=== PATIENT | female | born 1960 ===

== ENCOUNTER 2018-09-30 09:08 | Day surgery (SDC) | payer OTHER ==
[~2018-09-30] VITALS: Ht 157.5 cm; Wt 73.9 kg
[2018-09-30 09:57] VITALS: BP 104/67
[2018-09-30] MEDS ORDERED: HYDROCODON-ACE1 EA13 ORAL (10:07)
[2018-09-30] MEDS ORDERED: BUSPIRONE HCL10 M1 ORAL (10:07)
[2018-09-30] MEDS ORDERED: [UNRECOGNIZED DRUG - OTHER] PO (10:07)
[2018-09-30] MEDS ORDERED: DOK100 M2 PO (10:07)
--- NOTE | 2018-09-30 10:24 | Short Stay Surgery H&P ---
History of Present Illness History of Present Illness Chief Complaint Abdominal pain/GERDs, HPI Erika Ferrer is a 58 year old female who was admitted on for GERD and abdominal pains Patient History PAST MEDICAL HISTORY: (1) Acute arthritis (2) Status post carpal tunnel release Medication History Scheduled Buspirone Hcl* (Buspirone Hcl*), 10 MG ORAL ONCE, (Reported) Docusate Sodium (Dok), 100 MG PO DAILY, (Reported) Hydrocodone Bit/Acetaminophen 10-325* (Hydrocodon-Acetaminophn 10-325*), 1 TAB ORAL Q4H, (Reported) Methylphenidate Hcl (Methylphenidate Hcl), 10 MG PO DAILY, (Reported) Review of Systems Cardiovascular: Reports: no symptoms Respiratory: Reports: no symptoms Skeletal: Reports: trauma Gastrointestinal: Reports: gastro esophageal reflux disease Genitourinary: Reports: no symptoms Neurologic: Reports: no symptoms Endocrine: Reports: no symptoms Hematologic: Reports: no symptoms Physical Exam Vital Signs Last Vital Signs Date Time Temp Pulse Resp B/P (MAP) Pulse Ox O2 Delivery O2 Flow Rate FiO2 09/30/18 10:08 Room Air 09/30/18 09:57 97.3 77 18 104/67 99 Skin: normal HENT: normal Heart: normal Lungs: normal Abdomen: abnormal Extremities: normal Genitourinary: normal Plan Plan of Care Upper GI endoscopy with biopsy Preop Interventions None Summary of Findings See the reports Attestation Are the patient's medical conditions optimized for surgery? Attestation Response: yes Aj Baird MD Sep 30, 2018 10:24
--- NOTE | 2018-09-30 10:25 | Pre-Procedure Note/Attestation ---
Pre-Procedure Note/Attestation Complete Prior to Procedure Planned Procedure: left Procedure Narrative: Examination of the upper GI tract via endoscope Indications for Procedure Pre-Operative Diagnosis: R/O Gastritis/Peptic ulcer Attestation I attest that I discussed the nature of the procedure; its benefits; risks and complications; and alternatives (and the risks and benefits of such alternatives ), prior to the procedure, with the patient (or the patient's legal outreach representative). I attest that, if there was a reasonable possibility of needing a blood transfusion, the patient (or the patient's legal outreach representative) was given the [facility] standardized written summary, pursuant to the [place] Blood Safety Act ([place] Health and Safety Code # 1645, as amended). I attest that I re-evaluated the patient just prior to the surgery and that there has been no change in the patient's H&P, except as documented below: Aj Baird MD Sep 30, 2018 10:25
[2018-09-30] MEDS ORDERED: Propofol 200mg/20ml IV ONE (11:00)
[2018-09-30] MEDS ORDERED: Midazolam 2mg/2ml Inj ONE (11:00)
[2018-09-30] MEDS ORDERED: Lidocaine 1% MPF 10mg/ml 5ml ONE (11:00)
[2018-09-30] MEDS ORDERED: LR 1000ml ONE (11:00)
--- NOTE | 2018-09-30 11:03 | Anethesia Preoperative Eval ---
Anesthesia Pre-op PMH/ROS General Date of Evaluation: Sep 30, 2018 Time of Evaluation: 10:45 Anesthesiologist: Colt ASA Score: ASA 1 Mallampati Score Class I : Soft palate, uvula, fauces, pillars visible Class II: Soft palate, uvula, fauces visible Class III: Soft palate, base of uvula visible Class IV: Only hard plate visible Mallampati Classification: Class I Surgeon: Oli Diagnosis: GERD Surgical Procedure: EGD Anesthesia History: none Family History: no anesthesia problems Allergies: Coded Allergies: PENICILLINS (Verified Allergy, Severe, Anaphylaxis, 09/30/18) Medications: see eMAR Patient NPO?: Yes NPO Date: Sep 29, 2018 NPO Time: 19:00 Past Medical History Cardiovascular: Denies: HTN, CAD, SC, valve dz, arrhythmia, other Pulmonary: Denies: asthma, COPD, MARY ANN, other Gastrointestinal/Genitourinary: Reports: GERD Neurologic/Psychiatric: Reports: depression/anxiety Endocrine: Reports: hypothyroidism HEENT: Denies: cataract (L), cataract (R), glaucoma, CHILKAT (L), CHIL[place]AT (R), other Hematology/Immune: Denies: anemia, DVT, bleeding disorder, other Musculoskeletal/Integumentary: Reports: OA, DJD Other: obesity PSxH Narrative: carpel tunnel release Anesthesia Pre-op Phys. Exam Physician Exam Last Vital Signs Date Time Temp Pulse Resp B/P (MAP) Pulse Ox O2 Delivery O2 Flow Rate FiO2 09/30/18 10:08 Room Air 09/30/18 09:57 97.3 77 18 104/67 99 Constitutional: NAD Neurologic: CN 2-12 intact Cardiovascular: RRR Respiratory: CTA Gastrointestinal: S/NT/ND Airway Exam Mallampati Score: Class I MO: full ROM: full Teeth: intact Dentures: no upper, no lower Anesthesia Pre-op A/P Studies Pre-op Studies: EKG Risk Assessment & Plan Assessment: A&Ox4 Plan: MAC Status Change Before Surgery: No Pre-Antibiotics Given Within 1 Hr of Incision: Radha Mota CRNA Sep 30, 2018 11:03
--- NOTE | 2018-09-30 11:05 | Immediate Post-Op Evaluation ---
Immediate Post-Op Evalulation Immediate Post-Op Evalulation Procedure: EGD Date of Evaluation: Sep 30, 2018 Time of Evaluation: 11:13 IV Fluids: 300 ml Blood Products: 0 Estimated Blood Loss: 0 Urinary Output: 0 Blood Pressure Systolic: 108 Blood Pressure Diastolic: 64 Pulse Rate: 75 Respiratory Rate: 18 O2 Sat by Pulse Oximetry: 100 Temperature (Fahrenheit): 97.5 Pain Score (1-10): 0 Nausea: No Vomiting: No Complications none Patient Status: awake, reacts, patent Hydration Status: adequate Given Within 1 Hr of Incision: No - none per surgeon Radha Gregory CRNA Sep 30, 2018 11:05
--- NOTE | 2018-09-30 11:08 | Endoscopy Procedure Note ---
Endoscopy Procedure Note General Indication for Procedure: Abdominal pains/GERDs Procedures Performed: EGD - Multiple 2-3 mm superfical ulceration in body and antral portion od the stomach and some with fresh blood clot on them, bile in the stomach and mild gasritis of the body and the antrum. biopsy obtaind from antral ulcer Specimen: yes Pt Tolerated Procedure Well: Yes Estimated Blood Loss: none Anesthesia Anesthesiologist: Ms. ted PEGUERO Anesthesia: moderate sedation Medications Medication Given: see anesthesia record Inserted Devices Implant(s) used?: No Quality Quality of Bowel Preparation: Excellent Was there any complications?: No GI Core Measures 50 yrs or older w/o bx or poly: Not Applicable 10yrs. F/U not recommended: Not Applicable If not recommended, why?: Med reason:<3 yrs.: System Reason:<3 yrs.: Aj Baird MD Sep 30, 2018 11:08
--- NOTE | 2018-09-30 11:08 | Discharge Instructions ---
Discharge Instructions Discharge Instructions Follow up with: Visit the doctor in office after 2 weeks For Congestive Heart Failure Reminder Report to your physician any weight gain of 5 pounds or more in one week. Aj Baird MD Sep 30, 2018 11:08
--- NOTE | 2018-09-30 11:28 | 48 Hour Post Anesthesia Eval ---
Post Anesthesia Evaluation Procedure: EGD Date of Evaluation: Sep 30, 2018 Time of Evaluation: 11:27 Blood Pressure Systolic: 104 0: 67 Pulse Rate: 77 Respiratory Rate: 18 Temperature (Fahrenheit): 97.3 O2 Sat by Pulse Oximetry: 99 Airway: patent Nausea: No Vomiting: No Pain Intensity: 0 Hydration Status: adequate Cardiopulmonary Status: WNL Mental Status/LOC: patient returned to baseline Post-Anesthesia Complications: none Follow-up care needed: patient intructions given Radha Gregory CRNA Sep 30, 2018 11:28
[2018-09-30 11:50] VITALS: BP 112/67
[2018-09-30 12:20] VITALS: BP 113/75
--- NOTE | 2018-09-30 17:45 | Operative Note - Dictated ---
DATE OF OPERATION: 09/30/2018 SURGEON: Aj Baird M.D. PROCEDURE: Esophagogastroduodenoscopy with biopsy and esophageal brushings. PREOPERATIVE DIAGNOSES: 1. Abdominal pain. 2. Epigastric pain. 3. Chest pain. 4. Severe heartburn. POSTOPERATIVE DIAGNOSES: 1. Multiple superficial 2 to 3 mm superficial ulcerations over the body and the antral area, some of them covered with blood clots consistent with acute gastric ulcers. 2. Evidence of bile in the stomach. 3. Mild gastritis. 4. Exudative process in the esophagus, rule out Lynne esophagus. Biopsies were taken from the gastric ulcer in the antral area and brushing was done in the esophagus to rule out Lynne esophagus. MEDICATION USED: Per Ms. Colt CRNA, fire warden. INSTRUMENT: GIF Olympus upper GI video endoscope. DESCRIPTION OF PROCEDURE: The patient after arriving endoscopy unit, was told about risks and benefits of the procedure, which she accepted and signed informed consent. She was then put in the left lateral decubitus position. After adequate IV sedation, the scope was gently passed through the cricopharyngeal area, was lodged into the upper esophagus, and gradually advanced towards gastroesophageal junction. The examination of the esophagus revealed evidence of a small exudative process adhering to the esophageal wall raising the possibility of Lynne esophagus and as such, an esophageal brushing was done. The gastroesophageal junction looked normal and there was no any evidence of hiatal hernia or Linda's. At this time, the scope was advanced into the stomach. Gastric cavity was distended with insufflation of air revealing evidence of moderate amount of bile in the stomach and the underlying mucosa basically revealed evidence of multiple small superficial ulcerations 2 to 3 mm mostly over the greater curvature of the stomach and posterior wall. Some of them are covered with fresh blood clot. There was also some ulcerations in the antrum as well and there was evidence of mild gastritis in the body and the antral area of the stomach. One biopsy from one of the ulcerations in the antrum was obtained and subsequently, the scope was passed through the pylorus. First and second portion of duodenum were found to be completely normal. At this time, the scope was pulled back into the stomach. A retroflexion maneuver was applied and the area of the gastroesophageal junction was examined, which revealed no other pathologies. Finally, the scope was pulled out and the procedure was terminated. The patient tolerated the procedure well and left the endoscopy room in a good condition. Said Lanette Baird DR: SABRINA JOB#: [id number] CC:
--- NOTE | 2018-09-30 18:00 | Pre-op HX & Phy Repo 2 SIG ---
DATE OF ADMISSION: 09/30/2018 HISTORY OF PRESENT ILLNESS: This examination is a preoperative physical history that had to be done prior to the patient undergoing anesthesia and therefore subject to the billing spent. The patient is a 58-year-old, currently actively working as technical support assistant in [employer], who basically was seen by me sometime ago and she was basically complaining of experiencing pain over the upper part of the stomach, which was associated with severe heartburn radiating towards the chest area. She reports to me now that she has been having constant pressure over the part of the epigastric area, radiating towards the chest as I mentioned with pains. These pains are recurrent in nature and occasionally last 1 hour. They were reported to be quite severe. She reports that there is no particular food that make it worse and though she does have heartburn. She had also been in the past taking [id number]-[id number] medications for this condition, such as Pepto-Bismol and etc., but it did not help her completely. It is important to mention that she has had history of taking a significant numbers of analgesics along with nonsteroidal anti-inflammatory agents such as ibuprofen and that she is also taking at this time along with Zoloft, BuSpar, and [place]. The patient, however, denies having any hematemesis, melena, hematochezia, or bleeding from GI tract. She has also been followed by her primary caregiver in [facility] and received a colonoscopic examination some years ago, which was reported to be normal. She denies having difficulty swallowing. As I mentioned, she is still taking ibuprofen of 800 mg on a daily basis. The applicant was also injured at job site, as she was functioning as a technical support assistant in [facility] and these areas of injury basically have been over the neck and dorsal lumbar area and shoulder, and she has suffered from herniated disk in the dorsal lumbar area as well. As such, she has been treated with multiple medications of NSAIDs family and received also cervical epidural steroid injection. The patient also tells me that she has been having constipation, which seems to be mostly to the side effects of [place] medicine and a strong analgesics that she had to take for controlling of her bodily pain. PAST MEDICAL HISTORY: Basically not important except arthritis and she denies any problem with lipids, diabetes, or hypertension, etc. PAST SURGICAL HISTORY: Carpal tunnel release of both hands. ALLERGIES: To penicillin . HABITS: The applicant denies drinking alcohol or smoking cigarettes. CURRENT MEDICATIONS: Zoloft, ibuprofen 800 mg, BuSpar, and [place] 5/300. REVIEW OF SYSTEMS: Basically history of present illness, however, the patient complains of experiencing pain over the back and the neck area as well as the pain over the left hand. As such, she has been taking medications. Endocrine, she has been diagnosed possibly, she has thyroid condition, but she is not sure, but there is no diabetes. Psychologically, also she has been having the severe depression and anxiety. PHYSICAL EXAMINATION: GENERAL: At this time reveals alert and oriented very pleasant female, does not seem to be in any acute distress. She looks overweight. VITAL SIGNS: All stable. HEENT: Normocephalic. Pupils are equal in size and reactive to light and accommodation. No jaundice. Buccal cavity, tongue midline and well hydrated. No ulcers. NECK: Supple. No JVD, thyromegaly, or adenopathy. CHEST: Clear to auscultation and percussion. No rales or rhonchi. HEART: S1, S2 normal. Regular rhythm. No gallops or murmur. ABDOMEN: Soft, but is obese and there are areas of tenderness over the upper part of the abdomen, is particularly over the epigastric area, but there is no palpable mass. No organomegaly noted. EXTREMITIES: Unremarkable. PRELIMINARY PREOPERATIVE IMPRESSION: 1. Epigastric pain of uncertain etiology, rule out NSAID-induced gastropathy, gastric ulcers, gastritis, and esophagitis. 2. History of bodily injury, work related. 3. Anxiety and depression. RECOMMENDATIONS: At this time, the patient seems to be stable to undergo the procedure of upper GI endoscopy, for which she has been scheduled. She is cleared, as I examined her at this time. She understands the risks and benefits of this procedure and will sign the consent. Said Lanette Baird DR: RICK JOB#: [id number] CC:
== END 2018-09-30 12:30 | disposition home or self-care (01) ==
LOC: GAS 09:08
DX: K25.9 Gastric ulcer, unspecified as acute or chronic, without hemorrhage or perforation (principal); K29.50 Unspecified chronic gastritis without bleeding; E03.9 Hypothyroidism, unspecified; F41.9 Anxiety disorder, unspecified; F32.9 Major depressive disorder, single episode, unspecified; E66.9 Obesity, unspecified; Z88.0 Allergy status to penicillin
CPT/HCPCS: 43239; J2250; J2704; 94003; 94150